=== PATIENT | female | born 1965 | race Caucasian/White ===

== ENCOUNTER 2025-04-24 12:29 | Outpatient (CLI) | payer MEDICAID ==
[~2025-04-24 12:29] MED LIST: CYCL-1 PO
--- NOTE | 2025-04-24 16:28 | RADIOLOGY REPORT ---
PROCEDURE: MR MRI HEAD INDICATION: MIGRAINE WITH AURA EXAM DATE: 04/24/2025 12:35 PM COMPARISON: None TECHNIQUE: MRI of the brain without intravenous contrast. FINDINGS: Diffusion weighted images of the brain demonstrate no evidence of acute infarction. There is no evidence of acute intracranial hemorrhage, extra-axial collection, mass effect, midline s hift, herniation or hydrocephalus. The ventricles, sulci and cisterns appear age appropriate. The signal intensities of the brain parenchyma are within normal limits. There are no signal abnormalities on the susceptibility weighted sequences. The major vascular flow voids are present. The visualized paranasal sinuses and mastoid air cells are clear. The surrounding soft tissues and o sseous structures are unremarkable. IMPRESSION: 1. No evidence of acute infarction, intracranial hemorrhage, mass effect or hydrocephalus. HS:Y
== END 2025-04-24 23:59 | disposition home or self-care (01) ==
LOC: MRI02 12:29
PROVIDERS: ATTEND Nurse Practitioner Occupational Health
DX: G43.E09 Chronic migraine with aura, not intractable, without status migrainosus (principal)
CPT/HCPCS: 70551